=== PATIENT | male | born 1965 | race Asian ===

== ENCOUNTER 2017-09-19 13:15 | Day surgery (SDC) | payer OTHER ==
[2017-09-19] MEDS ORDERED: LIDOCAINE 100 MG SYRINGE (14:49)
[2017-09-19] MEDS ORDERED: PROPOFOL 40 ML (14:49)
== END 2017-09-19 15:53 | disposition home or self-care (01) ==
LOC: GIL 13:15
DX: R19.4 Change in bowel habit (principal); D12.5 Benign neoplasm of sigmoid colon; K21.9 Gastro-esophageal reflux disease without esophagitis; K29.70 Gastritis, unspecified, without bleeding; K64.8 Other hemorrhoids; I25.10 Atherosclerotic heart disease of native coronary artery without angina pectoris; E11.9 Type 2 diabetes mellitus without complications; I50.9 Heart failure, unspecified; I25.2 Old myocardial infarction
CPT/HCPCS: 43239; 82962; 87081; 88305

== ENCOUNTER 2018-04-02 15:23 | Emergency (ER) | payer SELFPAY, OTHER | END 2018-04-02 17:14 | disposition left against medical advice (07) | LOC: E/R 15:23 | DX: Z53.21 Procedure and treatment not carried out due to patient leaving prior to being seen by health care provider (principal) ==

== ENCOUNTER 2019-05-02 07:50 | Day surgery (SDC) | payer OTHER ==
[2019-05-02] MEDS ORDERED: PROPOFOL 20 ML (09:17)
[2019-05-02] MEDS ORDERED: MIDAZOLAM 1 MG/ML 2 ML INJ (09:18)
== END 2019-05-02 10:49 | disposition home or self-care (01) ==
LOC: GIL 07:50
DX: K21.9 Gastro-esophageal reflux disease without esophagitis (principal); K29.60 Other gastritis without bleeding; I12.9 Hypertensive chronic kidney disease with stage 1 through stage 4 chronic kidney disease, or unspecified chronic kidney disease; N18.9 Chronic kidney disease, unspecified; E11.9 Type 2 diabetes mellitus without complications; Z79.82 Long term (current) use of aspirin; Z79.84 Long term (current) use of oral hypoglycemic drugs
CPT/HCPCS: 43239; 82962; 88305